=== PATIENT | female | born 1995 ===

== ENCOUNTER 2019-03-16 14:49 | Emergency (ER) | payer OTHER ==
[~2019-03-16] VITALS: Ht 165.1 cm; Wt 127.3 kg
[2019-03-16 14:58] VITALS: BP 99/51
== END 2019-03-16 16:34 | disposition left against medical advice (07) ==
LOC: ER 14:50
DX: R10.9 Unspecified abdominal pain (principal); R11.2 Nausea with vomiting, unspecified; Z53.21 Procedure and treatment not carried out due to patient leaving prior to being seen by health care provider